=== PATIENT | female | born 1985 | race Caucasian/White ===

== ENCOUNTER 2019-05-06 04:04 | Emergency (ER) | payer OTHER, MEDICAID, SELFPAY ==
[2019-05-06 04:09] VITALS: BP 145/90; PULSE 95; RESP 14; TEMP 36.1; O2SAT 98; BMI 32.1
--- NOTE | 2019-05-06 04:17 | US_ITS ---
STUDY: FIRST TRIMESTER OBSTETRICAL ULTRASOUND REASON FOR EXAM: Female, 34 years old pain. LMP: 04/01/2019. TECHNIQUE: Transvaginal TECHNICAL QUALITY: Adequate. PRIOR ULTRASOUND: None. FINDINGS: There is visualization of a single gestational sac in a normal intrauterine position. The mean sac diameter (MSD) measures 0.51 cm, indicating an estimated gestational age (EGA) of 5 weeks, 0 days. The gestational sac shape is within normal limits. There is a visualized yolk sac. The yolk sac is too small to measure accurately. The placenta is non-visualized. There is no demonstrated embryo ( pole). The estimated gestation age (EGA) by LMP is 5 weeks, 0 days. The estimated date of delivery (OCTAVIO) by LMP is 01/06/2020. The estimated gestation age (EGA) by US is 5 weeks, 0 days. The estimated date of delivery (OCTAVIO) by US is 01/06/2020. The uterus measures 8.4 x 4.8 x 4.3 cm.. There is no demonstrated uterine fibroid. The cervix is closed. The right ovary measures 2.1 x 1.5 x 1.2 cm. There are multiple follicles of the right ovary without a dominant cyst. There is no visualized right adnexal mass or complex lesion. The left ovary measures 3.4 x 2.4 x 1.8 cm. There are multiple follicles of the left ovary without a dominant cyst. There is no visualized left adnexal mass or complex lesion. There is no fluid in the cul de sac. US/Transvaginal w/Preg US IMPRESSION: Small gestational saclike structure corresponding to a gestational age of 5 weeks and 0 days. No pole visualized are cardiac activity most compatible with very early gestation. Clinical correlation recommended and if indicated, correlation with serial hCG measurements and short interval ultrasound recommended to document cardiac activity and ensure normal . Electronically Signed: Viry Trujillo MD at 6:11 EDT , Service support ,
--- NOTE | 2019-05-06 05:53 | ED.DCSUM_ITS ---
- ER Visit Summary Date of Service: 05/06/19 Chief Complaint: [Abdominal pain] History of Present Illness: The patient is a 34 F [presents to the emergency department complaint of abdominal pain that started around 9 PM last evening. Patient was initially seen at [facility] emergency department. She had blood work performed and as part of that noted that she was . Patient states that her last menstrual period was about exactly a month ago. Patient is G2, P1. Patient's lab work including CBC as well as chemistries and LFTs and lipase as well as urinalysis were all unremarkable. Patient was given morphine and a GI cocktail and her pain is currently resolved. Patient was transferred to this emergency department by [place] emergency department physician to rule out ectopic given that patient has new diagnosis of with abdominal pain. Patient denies any lower abdominal pain. She denies any vaginal bleeding.] Physical Examination: [HEENT-PERRLA, EOMI. Cranial nerves II through XII grossly intact. TMs clear. Mucous membranes moist. No adenopathy. Cardiovascular-regular rate and rhythm without murmur or ectopy Lungs-clear to auscultation, chest wall stable without crepitus or subcu emphysema Abdomen-normoactive bowel sounds, soft, nontender, no rebound or rigidity, no peritoneal signs. Extremities-intact ?4, normal range of motion, normal pulses, atraumatic] Test Results: [Pelvic ultrasound obtained and showed small gestational sac like structure in the uterus corresponding to gestational age of 5 weeks 0 days. 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 I suspect the is an incidental finding and not related to patient's upper abdominal pain that she had last evening that is now resolved. He is to be pain-free.] Disposition: [Discharged home in stable condition.] Impression: [Nominal pain-resolved New ] This note was generated with Minicabsteration software. It may contain incorrect words, spelling, and punctuation that were not noted in review of the chart prior to signing ED Disposition - Plan for ED Patient: Referrals: Cindy Dahl DO [Primary Care Provider] -
--- NOTE | 2019-05-06 06:16 | ED.DEP ---
ED Disposition - Plan for ED Patient: Instructions: , New Dx, ABDOMINAL PAIN, Unknown Cause, (Female) Referrals: Cindy Dahl DO [Primary Care Provider] - 3-5 Days
[2019-05-06 06:21] VITALS: RESP 14
== END 2019-05-06 06:22 | disposition home or self-care (01) ==
PROVIDERS: Emergency Provider Emergency Medicine; Family Provider Internal Medicine; PCP Internal Medicine
DX: O26.891 Other specified pregnancy related conditions, first trimester (principal); R10.9 Unspecified abdominal pain; O10.911 Unspecified pre-existing hypertension complicating pregnancy, first trimester; Z3A.01 Less than 8 weeks gestation of pregnancy
CPT/HCPCS: 76817; 99282

== ENCOUNTER → 2019-08-07 14:47 | Outpatient (CLI) | payer OTHER, MEDICAID, SELFPAY ==
[2019-08-07 17:50] LABS: Progesterone Level 0.29 ng/mL (See Comment)
[2019-08-07 18:20] LABS: Internal QC Validated? YES +Cl - CLEAR BKGD; Pregnancy, Serum, hCG Quali. NEGATIVE Negative
== END ==
PROVIDERS: Visit Provider Obstetrics & Gynecology
DX: Z30.014 Encounter for initial prescription of intrauterine contraceptive device (principal)
CPT/HCPCS: 36415; 84144; 84703

== ENCOUNTER → 2019-08-10 14:47 | Outpatient (CLI) | payer OTHER, MEDICAID, SELFPAY ==
[2019-08-10 19:18] LABS: Chlamydia Trachomatis by PCR Negative (Negative); Neisserai gonorrhoeae by PCR Negative (Negative); Probe Check PASS; Sample Adequacy Control PASS; Specimen Processing Control PASS
== END ==
PROVIDERS: Visit Provider Obstetrics & Gynecology
DX: Z11.3 Encounter for screening for infections with a predominantly sexual mode of transmission (principal)
CPT/HCPCS: 87491; 87591

== ENCOUNTER 2020-03-24 23:05 | Emergency (ER) | payer OTHER, MEDICAID, SELFPAY ==
[2020-03-24 23:06] VITALS: BP 174/95; PULSE 57; RESP 18; TEMP 36.6; O2SAT 100; BMI 29.5
--- NOTE | 2020-03-24 23:15 | ED.DCSUM_ITS ---
History of Present Illness Chief Complaint: Abd Pain Informant: Patient Narrative: 34-year-old female presenting with epigastric pain which radiates both to the right and left. She states that this started about 630. She had not eaten since 11:30 PM and it does not appear to relate to food. She states she has had this in the past and it seems to come and go. She states she is also seen her PCP for this who prescribed antacids. Patient does state that it does not usually last this long. She has no associated nausea or vomiting. She denies constipation or diarrhea. She states she does not drink alcohol or do drugs. She is not had a fever. Past Medical History - Allergies and Home Meds Allergies/Adverse Reactions: Allergies No Known Allergies Allergy (Verified 03/24/20 23:05) Primary Care Physician: Cindy Dahl DO [Primary Care Provider] - Past Medical History: - - Hypertension and GERD Lives: Spouse/ Significant Other Smoking Status: Never smoker Alcohol: None Drugs: None Review of Systems General: Denies: Chills, Fever, Sweats Eyes: Denies: Visual changes - bilaterally, Diplopia ENT: Denies: Rhinorrhea, Sore throat Cardiovascular: Denies: Chest pain, Palpitations Respiratory: Denies: Dyspnea, Cough, Dyspnea on exertion Gastrointestinal: Reports: Abdominal pain. Denies: Nausea, Vomiting, Diarrhea, Constipation Genitourinary: Denies: Dysuria, Hematuria Musculoskeletal: Denies: Myalgias, Arthralgias Skin: Denies: Rash, Abscess Neurological: Denies: Headache, Weakness Physical Exam Vital Signs/Narrative: Vital Signs Temp Pulse Resp BP Pulse Ox 03/24/20 23:06 97.9 F 57 L 18 174/95 H 100 General: Well nourished, No Acute Distress Head: Normocephalic, Atraumatic Eyes: Perrl, EOMI. Negative for: Scleral icterus ENT: Moist mucous membranes, No rhinorrhea Cardiovascular: Regular rate, Regular rhythm Respiratory: No distress, CTA bilaterally Abdomen: Soft, Nondistended, Tender - Tenderness to palpation in the right upper quadrant, epigastrium, left upper quadrant. Abdomen is non-peritoneal. There is no lower abdominal tenderness. Extremities: Nontender, No edema Skin: Normal color, No rash. Negative for: Jaundice Neurological: Alert, Oriented x3 Psychological: Normal affect Diagnostic/Tx/Re-eval Clinical Impression(s) from Imaging Studies Abdomen Ultrasound 03/25/20 01:22 IMPRESSION: Cholelithiasis without evidence for cholecystitis. Electronically Signed: Konstantin Shelton, at 3:49 EDT Tel , Service support , Abdomen/Pelvis CT 03/25/20 23:28 IMPRESSION: Negative enhanced CT of the abdomen and pelvis for acute intra-abdominal abnormality. Cholelithiasis without evidence for cholecystitis. Electronically Signed: Konstantin Shelton, at 0:45 EDT Tel , Service support , Laboratory Data 03/24/20 03/24/20 03/24/20 23:40 23:40 23:50 WBC 16.6 H RBC 4.81 Hgb 13.7 Hct 42.2 MCV 87.7 MCH 28.5 MCHC 32.5 RDW Std Deviation 40.8 RDW Coeff of Monika 12.7 Plt Count 347 MPV 10.3 Immature Gran % (Auto) 0.400 Neut % (Auto) 85.0 H Lymph % (Auto) 9.6 L [place] % (Auto) 3.7 Eos % (Auto) 1.1 Baso % (Auto) 0.2 Absolute Neuts (auto) 14.1 H Absolute Lymphs (auto) 1.59 Nucleated RBC % 0 Sodium 137 Potassium 3.5 Chloride 104 Carbon Dioxide 30.0 Anion Gap 3 L BUN 10 Creatinine 0.79 Estim Creat Clear Calc 85.01 Est GFR (MDRD) Af Amer 106 Est GFR (MDRD) Non-Af 88 BUN/Creatinine Ratio 12.7 Glucose 167 H Calcium 9.0 Total Bilirubin 0.50 AST 7 L ALT 16 Alkaline Phosphatase 88 Total Protein 8.3 H Albumin 4.0 Globulin 4.3 H Albumin/Globulin Ratio 0.9 Lipase 85 Urine Color Urine Clarity Urine pH Ur Specific [place] Urine Protein Urine Glucose (UA) Urine Ketones Urine Occult Blood Urine Nitrite Urine Bilirubin Urine Urobilinogen Ur Leukocyte Esterase Urine Test Negative 03/24/20 23:50 WBC RBC Hgb Hct MCV MCH MCHC RDW Std Deviation RDW Coeff of Monika Plt Count MPV Immature Gran % (Auto) Neut % (Auto) Lymph % (Auto) [place] % (Auto) Eos % (Auto) Baso % (Auto) Absolute Neuts (auto) Absolute Lymphs (auto) Nucleated RBC % Sodium Potassium Chloride Carbon Dioxide Anion Gap BUN Creatinine Estim Creat Clear Calc Est GFR (MDRD) Af Amer Est GFR (MDRD) Non-Af BUN/Creatinine Ratio Glucose Calcium Total Bilirubin AST ALT Alkaline Phosphatase Total Protein Albumin Globulin Albumin/Globulin Ratio Lipase Urine Color Yellow Urine Clarity Clear Urine pH 7.0 Ur Specific [place] 1.015 Urine Protein 15 H Urine Glucose (UA) Normal Urine Ketones 5 H Urine Occult Blood Negative Urine Nitrite Negative Urine Bilirubin Negative Urine Urobilinogen Normal Ur Leukocyte Esterase 25 H Urine Test - Medical Decision Making 34-year-old female presenting with upper abdominal pain which does include the right upper quadrant. Patient treated with morphine and Zofran with good relief of her pain. Lab work is unremarkable with exception of a leukocytosis of greater than 16. LFTs and lipase were normal. CT of the abdomen pelvis showed cholelithiasis without evidence of cholecystitis. Given the leukocytosis I did get a right upper quadrant ultrasound which does not show cholecystitis but does again identified cholelithiasis. On reevaluation the patient is pain-free. I believe the patient is stable to be discharged home but she was given return precautions for any new or worsening symptoms. She was given Dr. Garcia for follow-up. Impression: 1. Leukocytosis 2. Cholelithiasis ED Disposition - Plan for ED Patient: Disposition: Home or Assisted Living Instructions: ED Gallstones with Biliary Colic Referrals: Cindy Dahl DO [Primary Care Provider] - Rizwan Yun MD [STAFF PHYSICIAN] -
[2020-03-24 23:50] LABS: Absolute Lymphocyte Count 1.59 X10^3/uL (0.83-4.51); Absolute Neutrophil Count 14.1 X10^3/uL (2.0-7.7); Basophil# 0.04 X10^3/uL; Basophil% 0.2 % (0-1); Eosinophil# 0.19 X10^3/uL; Eosinophils% 1.1 % (0-5); Hematocrit 42.2 % (37-47); Hemoglobin 13.7 g/dL (12.0-15.0); Lymphocyte # 1.59 X10^3/ul (4.0); Lymphocyte % 9.6 % (19-41); Mean Corp Hgb Conc 32.5 g/dL (32-36); Mean Corpuscular Hgb 28.5 pg (27.0-32.0); Mean Corpuscular Volume 87.7 fL (81-99); Mean Platelet Vol. 10.3 fl (6.2-12.0); Monocyte# 0.62 X10^3/uL; Monocyte% 3.7 % (0-10); NRBC Flagged by Analyzer 0 % (0-5); Neutrophil # 14.11 X10^3/uL (2.7-7.7); Platelet Count 347 K/mm3 (150-450); RBC Distribution Width CV 12.7 % (11.6-14.6); RBC Distribution Width SD 40.8 fl (35.1-43.9); Red Blood Count 4.81 M/mm3 (4.2-5.4); White Blood Count 16.6 K/mm3 (4.4-11.0)
[2020-03-24] MEDS: Ondansetron 4 MG/2 ML Vial IV (23:54)
[2020-03-24] MEDS: Morphine 4 MG/ML Syringe IV (23:54)
[2020-03-25 00:03] LABS: Color, Urine Yellow (Yellow); Glucose, Dipstick Normal (Normal); Ketone-Dipstick 5 mg/dl (Negative); Leukocyte Esterase-Dipstick 25 /ul (Negative); Nitrite-Dipstick Negative (Negative); Occult Blood-Urine Negative /ul (Negative); Protein-Dipstick 15 mg/dl (Negative); Specific Gravity, Urine 1.015 (1.002-1.030); Urine Bilirubin Dipstick Negative (Negative); Urine Clarity Clear (Clear); Urine Urobilinogen Normal (Normal)
[2020-03-25 00:04] LABS: Internal QC Validated? YES +Cl - CLEAR BKGD; Pregnancy, Urine Negative Negative
[2020-03-25 00:10] LABS: ALB/GLOB Ratio 0.9 RATIO (0.9-2.4); AST(SGOT) 7 U/L (15-37); Alanine Aminotransfer ALT/SGPT 16 U/L (13-56); Alkaline Phosphatase 88 U/L (45-117); Anion Gap 3 (5-15); BUN 10 mg/dL (7-18); BUN/Creat Ratio 12.7 RATIO (10-20); Chloride 104 mmol/L (98-107); Creatinine, Serum 0.79 mg/dL (0.55-1.02); EST Glomerular Filtration Rate 88 mL/min (>60); Est Glom Filt Rate - Afr Amer 106 mL/min (>60); Estimated Creatinine Clearance 85.01 ml/min; Globulin 4.3 g/dL (2.2-4.2); Glucose 167 mg/dL (74-106); Lipase 85 U/L (73-393); Potassium 3.5 mmol/L (3.5-5.1); Protein, Total 8.3 g/dL (6.4-8.2); Sodium Level 137 mmol/L (136-145)
--- NOTE | 2020-03-25 01:22 | US_ITS ---
STUDY: ABDOMINAL ULTRASOUND - RIGHT UPPER QUADRANT REASON FOR VISIT: Female, 34 years old ABD PAIN X 1 YEAR -- F/U CT DONE TODAY TECHNIQUE: Ultrasound evaluation of the right upper quadrant was performed with real-time and static calles-scale imaging. TECHNICAL QUALITY: Adequate. COMPARISON: CT abdomen from 03/25/2020. FINDINGS: Liver: The liver measures 16 cm. There is normal echogenicity of the liver. The bile ducts are within normal limits. There is hepatic color flow. The direction of portal flow is hepatopetal. There is no demonstrated mass lesion. Gallbladder: Normal distended gallbladder. The gallbladder wall measures 2.4 mm. There is a negative sonographic Franco''s sign. There is no pericholecystic fluid. There are two 1 cm echogenic structures within the gallbladder, consistent with multiple gallstones. Gallbladder sludge is also seen. Common Bile Duct (C.B.D.): The common bile duct measures 3 mm. Pancreas: Normal size of the head, body and tail of the pancreas. There is normal echogenicity of the pancreas. There is no demonstrated pancreatic mass or cyst. Right Kidney: Normal size of the right kidney. The right kidney measures 10.8x 4.6 x 4.3 cm. Normal renal cortex. The right cortex measures 1.8 cm. There is no demonstrated renal mass or cyst. There is no right hydronephrosis. US/Abdomen Limited IMPRESSION: Cholelithiasis without evidence for cholecystitis. Electronically Signed: Konstantin Shelton, at 3:49 EDT Tel , Service support ,
[2020-03-25 01:45] VITALS: BP 148/94; PULSE 78; RESP 16; O2SAT 100
[2020-03-25 04:26] VITALS: BP 128/80; PULSE 82; RESP 16; O2SAT 98
--- NOTE | 2020-03-25 23:28 | CT_ITS ---
STUDY: CT ABDOMEN AND PELVIS WITH CONTRAST REASON FOR EXAM: Female, 34 years old. BILAT MID ABDOMEN PAIN RADIATING TO BACK,ELEVATED WBC,PREG TEST WAS NEGATIVE -- HX:GERD,HTN RADIATION DOSAGE (If Supplied By Facility): CTDIvol = ( 16.92 ) mGy, DLP = ( 987.27 ) mGycm TECHNIQUE: Transaxial images were obtained from the dome of the diaphragm to the symphysis pubis without oral contrast. IV 100 ML 370 ISOVUE was administered. Sagittal and coronal images were reconstructed. Individualized dose optimization techniques were used for this CT. COMPARISON: None. FINDINGS: The visualized lung bases are unremarkable. The visualized portions of the heart are within normal limits. Normal liver. There are multiple gallstones. Normal spleen. Normal pancreas. Normal bilateral adrenal glands. Normal right kidney. Normal left kidney. Normal visualized stomach. Normal small intestine. Normal colon. There is a large amount of retained stool within the cecum. Correlate for constipation. The appendix is visualized and appears normal. Normal abdominal aorta. Normal inferior vena cava. Normal retroperitoneum. Normal urinary bladder. There is an intrauterine device present. There are bilateral small ovarian cysts largest on the right measuring approximately 2 cm. Normal abdominal wall. Normal osseous structures. CT/Abdomen/Pelvis W IV Cont ONLY IMPRESSION: Negative enhanced CT of the abdomen and pelvis for acute intra-abdominal abnormality. Cholelithiasis without evidence for cholecystitis. Electronically Signed: Konstantin Shelton, at 0:45 EDT Tel , Service support ,
== END 2020-03-25 04:27 | disposition home or self-care (01) ==
PROVIDERS: Emergency Provider Student in an Organized Health Care Education/Training Program; PCP Internal Medicine
DX: D72.829 Elevated white blood cell count, unspecified (principal); K80.20 Calculus of gallbladder without cholecystitis without obstruction
CPT/HCPCS: 74177; 76705; 80053; 81002; 81025; 83690; 85025; 96374; 96375; 99283; Q9967; A4216; J2405

== ENCOUNTER 2020-03-28 03:39 | Emergency (ER) | payer OTHER, MEDICAID, SELFPAY ==
[2020-03-28 03:39] VITALS: BP 165/116; PULSE 70; RESP 16; TEMP 35.5; O2SAT 100
--- NOTE | 2020-03-28 03:55 | ED.DCSUM_ITS ---
- ER Visit Summary Date of Service: 03/28/20 Chief Complaint: Abdominal pain [] History of Present Illness: The patient is a 34 F [presents with complaint of abdominal pain that is worsened since around 10 PM last night. Patient describes the pain is epigastric and left upper quadrant that radiates to her back. Patient states that she has been having pain like this for several days and was seen in the emergency department on the of this month and diagnosed with gallstones. Patient states that she has been trying to avoid fatty and greasy foods. Patient last ate around 6:30 PM and ate mostly fruit. Pain became severe around 10 PM. Patient's had no nausea or vomiting. She denies any fevers. She denies urinary symptoms. Patient's last menstrual period was about 3 weeks ago. Patient has history of hypertension. No prior surgical history. During her last visit patient had lab work as well as a CT scan of the abdomen pelvis and a ultrasound of the abdomen.] Patient states that she has been having pain like this off and on for the last year but over this last week it is been more severe. Patient has a scheduled appointment with surgeon at 1 PM today. Physical Examination: [HEENT-PERRLA, EOMI. Cranial nerves II through XII grossly intact. TMs clear. Mucous membranes moist. No adenopathy. Cardiovascular-regular rate and rhythm without murmur or ectopy Lungs-clear to auscultation, chest wall stable without crepitus or subcu emphysema Abdomen-normoactive bowel sounds, soft. Patient has tenderness in the epigastric region and left upper quadrant with some guarding. There is no rebound, rigidity, or peritoneal signs. Extremities-intact ?4, normal range of motion, normal pulses, atraumatic] Test Results: CBC with differential count of 14.9, hemoglobin 15.6, hematocrit 46, platelets 394. Chemistries unremarkable. LFTs were normal. Lipase was 70. Lactate was 1.3. Urinalysis unremarkable. hCG was negative.] Emergency Department Course and Treatment: [Patient was given Dilaudid 1 mg IV and given a GI cocktail. Patient did have good pain relief with that. Patient does not think the GI cocktail helped much however.] Treatment Plan: [At this point I will feel any further imaging is indicated as she just had recent CT scan and ultrasound of the abdomen. Patient's white blood cell count is actually improved compared to her last visit. I do not feel she has a surgical abdomen. Patient to keep her appointment with her surgeon today.] Disposition: [Discharged home in stable condition] Impression: [Abdominal pain-etiology uncertain] This note was generated with MiName dictation software. It may contain incorrect words, spelling, and punctuation that were not noted in review of the chart alexis or to signing ED Disposition - Plan for ED Patient: Referrals: Cindy Dahl DO [Primary Care Provider] -
[2020-03-28 03:59] LABS: Absolute Lymphocyte Count 1.41 X10^3/uL (0.83-4.51); Absolute Neutrophil Count 12.9 X10^3/uL (2.0-7.7); Basophil# 0.05 X10^3/uL; Basophil% 0.3 % (0-1); Eosinophil# 0.06 X10^3/uL; Eosinophils% 0.4 % (0-5); Hematocrit 45.8 % (37-47); Hemoglobin 14.6 g/dL (12.0-15.0); Lymphocyte # 1.41 X10^3/ul (4.0); Lymphocyte % 9.5 % (19-41); Mean Corp Hgb Conc 31.9 g/dL (32-36); Mean Corpuscular Hgb 27.9 pg (27.0-32.0); Mean Corpuscular Volume 87.6 fL (81-99); Mean Platelet Vol. 10.3 fl (6.2-12.0); Monocyte# 0.41 X10^3/uL; Monocyte% 2.8 % (0-10); NRBC Flagged by Analyzer 0 % (0-5); Neutrophil # 12.91 X10^3/uL (2.7-7.7); Neutrophil % 86.7 % (47-70); Platelet Count 394 K/mm3 (150-450); RBC Distribution Width CV 12.6 % (11.6-14.6); RBC Distribution Width SD 41.2 fl (35.1-43.9); Red Blood Count 5.23 M/mm3 (4.2-5.4); White Blood Count 14.9 K/mm3 (4.4-11.0)
[2020-03-28] MEDS: Ondansetron 4 MG/2 ML Vial IV (04:01)
[2020-03-28] MEDS: 0.9% Normal Saline 1,000 ML 125 ML IV (04:01)
[2020-03-28] MEDS: Mag Hydrox/Al Hydrox/Simeth 30 ML UDC PO (04:02)
[2020-03-28] MEDS: HYDROmorphone 1 MG/ML Syringe IV (04:04)
[2020-03-28 04:06] LABS: Internal QC Validated? YES +Cl - CLEAR BKGD
[2020-03-28 04:07] LABS: Bacteria 0 SEEN /hpf (None Seen); Mucous, Urine 0 SEEN /hpf (<or=2+)
[2020-03-28 04:10] LABS: Color, Urine Yellow (Yellow); Glucose, Dipstick Normal (Normal); Leukocyte Esterase-Dipstick 25 /ul (Negative); Nitrite-Dipstick Negative (Negative); Occult Blood-Urine 10 /ul (Negative); Protein-Dipstick 30 mg/dl (Negative); Urine Bilirubin Dipstick Negative (Negative); Urine Clarity Clear (Clear); Urine Urobilinogen Normal (Normal)
[2020-03-28 04:12] LABS: Ketone-Dipstick 150 mg/dl (Negative)
[2020-03-28 04:12] LABS: ALB/GLOB Ratio 0.9 RATIO (0.9-2.4); AST(SGOT) 12 U/L (15-37); Alanine Aminotransfer ALT/SGPT 20 U/L (13-56); Albumin, Serum 4.4 g/dL (3.2-5.0); Alkaline Phosphatase 94 U/L (45-117); Anion Gap 8 (5-15); BUN 14 mg/dL (7-18); BUN/Creat Ratio 17.1 RATIO (10-20); Calcium,Total 9.5 mg/dL (8.5-10.1); Chloride 100 mmol/L (98-107); Creatinine, Serum 0.82 mg/dL (0.55-1.02); EST Glomerular Filtration Rate 84 mL/min (>60); Est Glom Filt Rate - Afr Amer 101 mL/min (>60); Estimated Creatinine Clearance 78.46 ml/min; Globulin 4.8 g/dL (2.2-4.2); Glucose 143 mg/dL (74-106); Lipase 70 U/L (73-393); Potassium 3.3 mmol/L (3.5-5.1); Protein, Total 9.2 g/dL (6.4-8.2); Sodium Level 136 mmol/L (136-145)
[2020-03-28 04:15] LABS: Red Blood Cells-Urine 0-5 SEEN /hpf (0-5); Squamous Epithelial Cells - UA 0-5 SEEN /hpf (5-10); White Blood Cells 0-5 SEEN /hpf (0-5)
[2020-03-28 04:32] LABS: Pregnancy, Serum, hCG Quali. NEGATIVE Negative (0-9 Nonpreg)
[2020-03-28 04:46] LABS: Lactic Acid 1.3 mmol/L (0.4-1.9)
--- NOTE | 2020-03-28 04:55 | ED.DEP ---
ED Disposition - Plan for ED Patient: Instructions: ED Abdominal Pain Unkn Cause Fem Prescriptions: Hydrocodone Bitart/Apap 5-325 [Urich 5MG-325MG] 1 tab PO Q4H PRN PRN 2 Days #10 tab PRN Reason: Pain Prescription Printed Referrals: Cindy Dahl DO [Primary Care Provider] - Rizwan Yun MD [STAFF PHYSICIAN] - 03/28/20
== END 2020-03-28 05:20 | disposition home or self-care (01) ==
LOC: ED 04:04
PROVIDERS: Emergency Provider Emergency Medicine; PCP Internal Medicine
DX: R10.13 Epigastric pain (principal)
CPT/HCPCS: 80053; 81001; 83605; 83690; 84703; 85025; 96374; 96375; 99283; J7030; A4216; J2405

== ENCOUNTER 2020-03-28 18:52 | Observation (INO) | payer OTHER, MEDICAID, SELFPAY ==
[2020-03-28] VITALS (10 sets, daily range): BP systolic 129–181; BP diastolic 85–107; PULSE 72–106; RESP 16–18; TEMP 36.1–37.1; O2SAT 98–100; BMI 29.7; BMI 30.1
--- NOTE | 2020-03-28 15:00 | EKG12_ITS ---
Test Reason : PRE Blood Pressure : / mmHG Vent. Rate : 081 BPM Atrial Rate : 081 BPM P-R Int : 126 ms QRS Dur : 080 ms QT Int : 346 ms P-R-T Axes : 048 024 021 degrees QTc Int : 401 ms Normal sinus rhythm with sinus arrhythmia Normal ECG No previous ECGs available Confirmed by NATHANIEL ALY, DILLON ([id number]), acquisitions editor JUJU RUBIN ([id number]) on 04/04/2020 1:10:35 PM Referred By: Rizwan Yun Confirmed By:DILLON ARMSTRONG MD
--- NOTE | 2020-03-28 15:08 | HP.PCM_ITS ---
Problem List (1) Acute cholecystitis Status: Acute History of Present Illness Date of Admission: 03/28/20 The patient is a 34 year old F who is had several attacks of epigastric pain rating to the back this week. Patient reports that she has been having these attacks for a few months but this last week has significantly increased in intensity. She reports that she does have nausea vomiting during these attacks in the last 4 to 5 hours. Past Medical History Allergies No Known Allergies Allergy (Verified 03/28/20 03:42) Home Medications: Ambulatory Orders Medication Instructions Recorded High Blood Pressure 1 tab PO DAILY 05/06/19 Hydrocodone Bitart/Apap 5-325 1 tab PO Q4H PRN PRN 2 Days #10 tab 03/28/20 [[place] 5MG-325MG] Smoking Status: Never smoker Review of Systems Constitutional: Denies: Anorexia, Fever HEENT: Denies: Difficulty Hearing Cardiovascular: Denies: Chest Pain Respiratory: Denies: Cough, Shortness of Breath Gastrointestinal: Reports: Abdominal Pain, Nausea, Vomiting. Denies: Hemateme sis, Hematochezia Genitourinary: Denies: Dysuria Skin: Denies: Dryness Psychiatric: Denies: Anxiety Hematologic/ Lymphatic: Denies: Anemia VTE Information - Inpt Only VTE Present on Admission: No VTE Mechan Device Prophylaxis: SCD's Patient Problems: Active and Suspected Problems Acute cholecystitis (Acute) - Physical Exam Vitals/I&O's: Body Mass Index (BMI) 30.0 General: Alert, Oriented x3 Neck: No JVD Lungs: Clear to auscultation Cardiovascular: Regular rate, Regular Rhythm Abdomen: Soft, Non Tender, Non-Distended Extremities: No clubbing Musculoskeletal: No Muscle Wasting Neurological: Cranial nerves II-XII grossly intact Psych/Mental Status: Normal Affect Assessment/Plan All Active Problems Acute cholecystitis (Acute) 34-year-old female with likely acute cholecystitis 1. The patient has been in the emergency room twice this week. She had an darlin vated white count with left shift both times. She had an ultrasound showed multiple large gallstones. There was no imaging done this morning when she was in the emergency room. The episode of pain resolved and she is currently pain- free but I believe she will not make it through the weekend to have elective cholecystectomy next week. I believe it is highly likely she will have another attack between now and Tuesday and I recommend cholecystectomy. I believe with her white count being elevated with left shift that she may be have an element of acute cholecystitis and leaving this until next week may make for a more difficult surgery with high risk of morbidity. 2. I discussed the procedure in detail with the patient. I discussed the risks, benefits, and alternatives of the procedure. I discussed the risks including but not limited to bleeding, infection, injury to surrounding organs such as the liver, bile duct, bowels. I did discuss the possibility of having to convert to an open procedure as well as the possibility that if any injuries occurred this may necessitate further surgery at a tertiary care center. We discussed the current risks associated with COVID-19. While it is understood that there is a community spread of COVID-19, the risk of manny COVID-19 while at [facility] ([facility]) is very low; however, the risk cannot be completely mitigated because of the community spread of the disease. We discussed in detail the risk of exposure to and/or potential harm posed by the COVID-19 virus with having a surgery/procedure at this time versus the risk of delaying the surgery/procedure. It is not possible to know either the risk of delaying the surgery or procedure or chance of getting an infection with perfect accuracy, but a joint decision was made to proceed at this time with the scheduled surgery/procedure as indicated on the consent form. Patient was notified that we will need to comply with any screening or testing [facility] wishes to perform or that surgery may be delayed for any positive results. Rizwan Yun MD Pager: [facility] [address] [place] [address], [address] [place] [address] Office:
[2020-03-28 15:23] LABS: Internal QC Validated? YES +Cl - CLEAR BKGD; Pregnancy, Urine Negative Negative
--- NOTE | 2020-03-28 15:35 | GALL_PTH ---
PATIENT: NATHALIE SORIANO LOC: [id number] U#:[id number] AGE/SX: 34/F ROOM: [facility] [place] RE03/28/[address]: Dr. Rizwan Ynu MD : [id number] BED: 1 DIS: 03/29/2020 SPEC #: [id number] RECD: 03/31/20 07:44 STATUS: FRIDA RODRIGUEZGarfield #: [id number] TRIXIE: 03/28/20 15:[address]: Rizwan Yun DEPT: SURGICAL PATHOLOGY RECD BY: Naga Victoria ENTERED: 03/31/20 08:41 SP TYPE: LEAH VILLAFANA DR: Dr. Cindy Dahl DO Tissues: Gallbladder, NOS Procedures: Surgery Specimen Level III HEADER OPERATION: Laparoscopic cholecystectomy with IOC PRE-OP DIAGNOSIS: Cholecystitis TISSUE SUBMITTED: Gallbladder MICROSCOPIC DIAGNOSIS Gallbladder, cholecystectomy: Acute and chronic hemorrhagic and ulcerated cholecystitis and cholelithiasis. SJ:saman 04/01/20 MICROSCOPIC DESCRIPTION Slides are reviewed. GROSS DESCRIPTION Received is one container labeled with the patient's name and designated gallbladder. The specimen consists of a gallbladder measuring 8 cm in length and up to 2 cm in diameter. The external surface is pink-gutierrez, smooth and glistening for the most part. Focally it is granular, hemorrhagic and contains cautery artifact. The gallbladder contains thick, green mucoid bile-like sludge material and three round rough-surface green stones measuring in aggregate 2 x 2 x 1 cm and measuring 1 cm in greatest dimension. The mucosa is bile-stained and without any mass lesions. The gallbladder wall measures up to 0.5 cm in thickness. Lean Facilitator sections from the gallbladder and the cystic duct are submitted in one cassette. / BILLIE:saman 03/31/20 TC:2 [facility]: [id number]
[2020-03-28] MEDS: Lactated Ringers 1,000 ML 75 ML IV (15:51)
[2020-03-28] MEDS: Bupiv/Epi 0.25% 30 ML Vial (18:40)
--- NOTE | 2020-03-28 18:52 | OP.PCM_ITS ---
Problem List (1) Acute cholecystitis Status: Acute Report of Operation Date of Procedure: 03/28/20 Pre-Operative Diagnosis: Acute cholecystitis Post-Operative Diagnosis: Same Surgery/Procedure Performed:: Laparoscopic cholecystectomy Specimen's removed: Gallbladder and contents Description of Procedure: After obtaining informed consent patient was brought back to the operating room. General anesthesia was induced. The abdomen was prepped and draped in usual sterile fashion. A small midline incision was made superior to the umbilicus and deepened to the level of fascia. The fascia was elevated and incised. Next the peritoneum was elevated and incised in the same fashion. Finger sweep was performed and the Peña trocar was placed into the abdomen. The balloon was inflated. The abdomen was inflated to 15 mmHg. Next a camera was introduced into the abdomen and the abdomen was inspected. Next under direct visualization three 5-mm ports were placed one subxiphoid and 2 subcostal. Next the gallbladder was elevated and retracted toward the right shoulder. The peritoneum was stripped from the gallbladder. The infundibulum was located and retracted laterally. Next the triangle of Calot was dissected and the cystic duct and cystic artery were identified. Cholangiograms were attempted. The gallbladder was grasped with the Rogers clamp and the needle was placed into the gallbladder but it did not flush due to inflammation of the wall and then flushed through the posterior wall. The cystic duct was too short to attempt a trans-cystic cholangiogram. The common duct was visible and very close to the infundibulum. Clips were placed across the short cystic duct staying away from the common duct. The cystic duct was then divided leaving 2 clips on the stump. The cystic artery was clipped and divided in the same fashion. The hook cautery was then used to take the gallbladder off of the gallbladder bed. Hemostasis was obtained. Gallbladder fossa was irrigated and no active bleeding or bile leakage was noted. Next the camera was introduced in the subxiphoid port. An Endopouch bag was placed through the umbilical port and the gallbladder was placed into it. The gallbladder was then removed through the umbilical incision. The camera was then reinserted through the umbilical port. The gallbladder fossa was inspected once more and noted to be hemostatic with no leaking bile. The abdomen was suctioned dry. The 5 mm ports were removed under direct visualization. The umbilical port was then removed and the air was rem lisette from the abdomen. Next using an 0 Vicryl suture the umbilical fascia was closed in a [id number] fashion. The umbilical port site was irrigated local anesthetic was administered to all the incisions. All the incisions were closed with interrupted subcuticular 4-0 Monocryl sutures followed by Steri- Strips and dressings. The patient was awoken and taken to PACU in stable condition. - Admit VTE Documentation VTE Mechan Device Prophylaxis: SCD's
[2020-03-29 00:28] VITALS: BP 146/89; PULSE 72; RESP 16; TEMP 36.8; O2SAT 100
[2020-03-29] MEDS: Lactated Ringers 1,000 ML 75 ML IV (02:52)
[2020-03-29 04:08] VITALS: BP 152/86; PULSE 76; RESP 16; TEMP 36.8; O2SAT 99
[2020-03-29 07:13] LABS: Absolute Lymphocyte Count 0.79 X10^3/uL (0.83-4.51); Absolute Neutrophil Count 7.6 X10^3/uL (2.0-7.7); Basophil# 0.01 X10^3/uL; Basophil% 0.1 % (0-1); Hematocrit 39.6 % (37-47); Hemoglobin 12.7 g/dL (12.0-15.0); Lymphocyte # 0.79 X10^3/ul (4.0); Lymphocyte % 8.9 % (19-41); Mean Corp Hgb Conc 32.1 g/dL (32-36); Mean Corpuscular Hgb 28.2 pg (27.0-32.0); Mean Corpuscular Volume 87.8 fL (81-99); Mean Platelet Vol. 10.2 fl (6.2-12.0); Monocyte# 0.41 X10^3/uL; Monocyte% 4.6 % (0-10); NRBC Flagged by Analyzer 0 % (0-5); Neutrophil # 7.61 X10^3/uL (2.7-7.7); Neutrophil % 86.2 % (47-70); Platelet Count 316 K/mm3 (150-450); RBC Distribution Width CV 12.9 % (11.6-14.6); RBC Distribution Width SD 41.8 fl (35.1-43.9); Red Blood Count 4.51 M/mm3 (4.2-5.4); White Blood Count 8.8 K/mm3 (4.4-11.0)
[2020-03-29 07:37] VITALS: BP 159/97; PULSE 81; RESP 16; TEMP 36.8; O2SAT 100
[2020-03-29 07:41] LABS: ALB/GLOB Ratio 0.8 RATIO (0.9-2.4); AST(SGOT) 28 U/L (15-37); Alanine Aminotransfer ALT/SGPT 33 U/L (13-56); Albumin, Serum 3.4 g/dL (3.2-5.0); Alkaline Phosphatase 79 U/L (45-117); Anion Gap 7 (5-15); BUN 6 mg/dL (7-18); BUN/Creat Ratio 8.8 RATIO (10-20); Calcium,Total 8.8 mg/dL (8.5-10.1); Chloride 102 mmol/L (98-107); Creatinine, Serum 0.68 mg/dL (0.55-1.02); EST Glomerular Filtration Rate 103 mL/min (>60); Est Glom Filt Rate - Afr Amer 125 mL/min (>60); Estimated Creatinine Clearance 94.61 ml/min; Glucose 104 mg/dL (74-106); Potassium 3.9 mmol/L (3.5-5.1); Protein, Total 7.4 g/dL (6.4-8.2); Sodium Level 137 mmol/L (136-145)
--- NOTE | 2020-03-29 08:05 | DCINST_ITS ---
Discharge Diet: Light diet - advance as tolerated Discharge Activity: Return to Normal Activity, May Not Drive - for 2-3 days or while taking narcotic pain medicataions., - - Do not drive, work heavy equipment or sign legal documents for 24 hours. May shower in (days): 1 - with the bandage in place. Lifting Restrictions: 20 lbs for 2 weeks Additional Activity Instructions:: Pain medication may cause nausea. You should typically eat light foods as you take your pain medications. Pain medication may also cause constipation. If this is a problem for you, please discuss with your doctor. Call your doctor if your incision/area has: Continuous Slow Oozing, Sudden Increased Bleeding, Increased Pain/ Swelling, Increased Redness, Foul Smelling Discharge, Fever of 101 or Higher Call your doctor if you observe: Fever of 101 or Higher Suture Line Care: Avoid Pulling/Pushing, Avoid Pinching/Bending Additional Dressing/Incision Instructions:: Leave operative bandaids on for 2 days. When you remove dressing, leave Steri-Strips on until your follow-up appointment, or until the Steri-Strips fall off on their own. Allergies/Adverse Reactions: Allergies No Known Allergies Allergy (Verified 03/28/20 03:42) Medications to take at Discharge High Blood Pressure 1 tab PO DAILY 05/06/19 Norgestimate-Ethinyl Estradiol [Tri-Sprintec Tablet] 03/28/20 Acetaminophen [Tylenol Tablet] 650 mg PO Q4H PRN PRN tablet 03/29/20 Test Results: Test results from this visit will be discussed in further detail at your follow- up appointment, if applicable. Please Follow Up With: Rizwan Yun MD When: Please call to schedule 2 week follow up appointment. [phone]
== END 2020-03-29 13:00 | disposition home or self-care (01) ==
LOC: SDC 19:01 → MS3 19:01
PROVIDERS: Anesthesiology; Admitting Provider Surgery; PCP Internal Medicine; Referring Provider Surgery; Visit Provider Surgery
PROC: (CPT 47610; principal; 2020-03-28 15:15)
DX: K80.12 Calculus of gallbladder with acute and chronic cholecystitis without obstruction (principal); I10 Essential (primary) hypertension; Z79.899 Other long term (current) drug therapy
CPT/HCPCS: 00790; 47562; 36415; 80053; 81025; 85025; 88304; 93005; 96360; 96361; 99218; 99251; J7120; G0378; G0463; J2405

== ENCOUNTER → 2020-09-17 14:34 | Outpatient (CLI) | payer OTHER, MEDICAID, SELFPAY ==
[2020-03-28 20:08] VITALS: BMI 30.1
[2020-09-25 10:48] LABS: HPV APTIMA, High Risk Negative (Negative)
[2020-09-25 10:49] LABS: HPV Reflexed? YES, CHARGE PATIENT
== END ==
PROVIDERS: PCP Internal Medicine; Visit Provider Obstetrics & Gynecology
DX: Z12.4 Encounter for screening for malignant neoplasm of cervix (principal)
CPT/HCPCS: 87624; 88175; G0145

== ENCOUNTER → 2024-01-04 | Outpatient (CLI) | payer MEDICAID, SELFPAY ==
[2024-01-06 22:07] LABS: Chlamydia By Nucleic Acid AMP Negative (Negative); Gonococcus By Nucleic Acid AMP Negative (Negative)
[2024-01-09 09:08] LABS: HPV APTIMA, High Risk Negative (Negative)
== END | disposition home or self-care (01) ==
PROVIDERS: PCP Internal Medicine; Referring Provider Nurse Practitioner Women's Health; Visit Provider Nurse Practitioner Women's Health
DX: Z11.3 Encounter for screening for infections with a predominantly sexual mode of transmission (principal); Z12.4 Encounter for screening for malignant neoplasm of cervix
CPT/HCPCS: 87491; 87591; 87624; 88175; G0145

== ENCOUNTER → 2024-10-26 | Outpatient (CLI) | payer MEDICAID, SELFPAY ==
--- NOTE | 2024-10-26 14:42 | BI_ITS ---
EXAM: SCRN MAMM (CAD)W/DEBBIE BILAT 10/26/2024 CLINICAL HISTORY: F, Age 39 y/o , SCREENING FOR BREAST CANCER TECHNIQUE: Bilateral screening digital breast tomosynthesis with 2D and 3D images. Computer aided detection. COMPARISON: No priors available FINDINGS: TISSUE DENSITY: The breast tissue is almost entirely fatty. Bilateral Breast Mammographic Findings: No significant masses, calcifications or other abnormalities are identified. BI/SCRN MAMM (CAD)W/DEBBIE BILAT IMPRESSION: Right Breast: BIRADS 1 NEGATIVE. Left Breast: BIRADS 1 NEGATIVE. OVERALL FINAL ASSESSMENT: BIRADS 1 NEGATIVE. RECOMMENDATION: Routine annual follow-up in 1 Year A letter with findings and recommendations will be mailed to the patient. Reading Location: [id number]
== END | disposition home or self-care (01) ==
LOC: OPBI 14:40
PROVIDERS: PCP Internal Medicine; Referring Provider Nurse Practitioner Women's Health; Visit Provider Nurse Practitioner Women's Health
DX: Z12.31 Encounter for screening mammogram for malignant neoplasm of breast (principal)
CPT/HCPCS: 77063; 77067